=== PATIENT | male | born 1980 | race Two or more races ===

== ENCOUNTER 2023-04-05 10:16 | Emergency (ER) | payer OTHER ==
[~2023-04-05] VITALS: Ht 177.8 cm; Wt 79.0 kg
[2023-04-05 10:26] VITALS: TEMP 98.2; O2SAT 98
[2023-04-05 11:22] LABS: BASOPHILS % 0.3 % (0.0-2.0); EOSINOPHILS % 0.5 % (0.0-5.0); HEMATOCRIT. 48.4 % (42.0-52.0); HEMOGLOBIN. 16.2 g/dL (14.0-18.0); LYMPHOCYTES % 17.2 % (20.0-50.0); MEAN CORPUSCULAR HEMOGLOBIN 31.4 pg (28.0-32.0); MEAN CORPUSCULAR HGB CONC 33.5 g/dL (31.0-37.0); MEAN CORPUSCULAR VOLUME 93.7 fL (80.0-94.0); MEAN PLATELET VOLUME 7.8 fl (7.4-10.4); MONOCYTES % 8.2 % (2.0-8.0); NEUTROPHILS % 73.8 % (40.0-76.0); PLATELET 261 x1000/uL (130-400); RED BLOOD CELL COUNT 5.17 mill/uL (4.7-6.1); RED CELL DISTRIBUTION WIDTH 13.8 % (11.6-14.6)
[2023-04-05 11:26] LABS: CLARITY URINE CLEAR (CLEAR); COLOR URINE YELLOW (YELLOW); GLUCOSE URINE NEGATIVE (NEGATIVE); KETONES URINE NEGATIVE (NEGATIVE); LEUKOCYTE ESTERASE URINE NEGATIVE (NEGATIVE); NITRITE URINE NEGATIVE (NEGATIVE); OCCULT BLOOD URINE NEGATIVE (NEGATIVE); PROTEIN URINE NEGATIVE (NEGATIVE); SPECIFIC GRAVITY URINE 1.008 (1.005-1.030); UROBILINOGEN URINE 0.2 E.U./dL (0.2-1.0)
[2023-04-05 11:42] LABS: CHLORIDE 106 mEq/L (98-107); INDEX HEMOLYSI 2 (1-3); INDEX ICTERIC 1 (1-4); INDEX LIPEMIC 1 (1-3); POTASSIUM 4.3 mEq/L (3.5-5.1); SODIUM 136 mEq/L (136-145)
[2023-04-05 11:49] LABS: ALANINE AMINOTRANSFERASE 39 IU/L (13-61); ALBUMIN 3.9 g/dL (3.4-5.0); ASPARTATE AMINOTRANSFERASE 17 IU/L (15-37); BILIRUBIN TOTAL 0.5 mg/dL (0.1-1.0); CALCIUM 9.5 mg/dL (8.5-10.1); CARBON DIOXIDE 28 mEq/L (21-32); GLUCOSE 116 mg/dL (70-105); PROTEIN TOTAL 7.7 g/dL (6.0-8.3); UREA NITROGEN BLOOD 11 mg/dL (7-21)
[2023-04-05 12:16] LABS: TROPONIN I HIGH SENSITIVITY 10 ng/L (<78)
[2023-04-05 13:15] VITALS: BP 156/92; PULSE 81; RESP 14
== END 2023-04-05 13:17 | disposition home or self-care (01) ==
LOC: ER 10:16
DX: R07.89 Other chest pain (principal)
CPT/HCPCS: 80053; 81003; 85025; 84484; 36415; 71045; 93005; 99285; Z7610